=== PATIENT | male | born 1995 | race Caucasian/White ===

== ENCOUNTER 2019-01-21 11:43 | Emergency (ER) | payer SELFPAY ==
[~2019-01-21] VITALS: Ht 175.3 cm; Wt 85.3 kg
[~2019-01-21 11:43] MED LIST: ALBUTEROL; DICY10CA26 PO; FLT05NA16; NAPR-243 PO; NAPR-248; ONDAN4ODT PO; PROAIR
[2019-01-21] MEDS ORDERED: LIDOCAINE 1% INJ 20 ML 20 ML VIAL ONE (11:49)
--- NOTE | 2019-01-21 12:08 | ED Lower Extremity ---
General Chief Complaint: Laceration Stated Complaint: LEG LACERATION Nursing Triage Note: pt presents to ed with complaints of r upper calf lac after jumping over a fence to try to catch his cat which got out of the house. pt denies any other injury. Nursing Sepsis Screen: No Definite Risk Source: patient Exam Limitations: no limitations History of Present Illness Date Seen by Provider: Jan 21, 2019 Time Seen by Provider: 12:04 Initial Comments to ER with laceration to the medial right knee. His cat got out of the house, went into the neighbor's yard. He jumped the fence which was chain linkto go get the cat and cut his leg. His tetanus is up-to-date within the last 5 years. He wrapped this with a bandanna he was wearing and came to the emergency room Onset: just prior to arrival Severity: moderate Pain/Injury Location: right knee Modifying Factors: Worse With Movement Allergies and Home Medications Allergies Coded Allergies: No Known Drug Allergies (Unverified , 02/08/09) Patient Home Medication List Home Medication List Reviewed: Yes Review of Systems Constitutional: see HPI EENTM: see HPI Respiratory: no symptoms reported Cardiovascular: no symptoms reported Genitourinary: no symptoms reported Musculoskeletal: see HPI Skin: no symptoms reported Psychiatric/Neurological: No Symptoms Reported Past Wzbhril-Miusju-Adpute Hx Patient Social History Alcohol Use: Denies Use Recreational Drug Use: No Smoking Status: Never a Smoker Recent Foreign Travel: No Contact w/Someone Who Travel: No Recent Infectious Disease Expo: No Recent Hopitalizations: No Physical Abuse: No Sexual Abuse: No Mistreated: No Fear: No Past Medical History Surgeries: Yes (tonsilectomy & adnoidectomy 2001; skin graft to rt outer العلي/ dog bite ) Respiratory: Yes Cardiac: No Neurological: No Reproductive Disorders: No Genitourinary: No Gastrointestinal: Yes (small twisted intestine found during colonscopy in december 20) Musculoskeletal: Yes (bruised sternum & rib from falling in PE in January 20) Endocrine: No HEENT: No Cancer: No Psychosocial: Yes Integumentary: No Blood Disorders: No Physical Exam Vital Signs Vital Signs - First Documented 01/21/19 11:52 Temp 98.2 Pulse 117 Resp 20 B/P (MAP) 140/89 (106) Pulse Ox 97 Capillary Refill : Less Than 3 Seconds Height, Weight, BMI Height: 5'9.00" Weight: 188lbs. oz. 85.701686xw; BMI Method:Stated General Appearance: WD/WN, no apparent distress HEENT: PERRL/EOMI, normal ENT inspection Respiratory: no respiratory distress, no accessory muscle use Hips: bilateral hip non-tender, bilateral hip normal inspection, bilateral hip normal range of motion Legs: bilateral leg non-tender, bilateral leg normal inspection, bilateral leg normal range of motion Knees: right knee other (there is a 3 cm laceration to the medial of the legat the proximal tibia just inferior to the knee joint. There is exposedfatty tissue.This did not make it down to the muscle fascia.) Ankles: bilateral ankle non-tender, bilateral ankle normal inspection, bilateral ankle normal range of motion Feet: bilateral foot non-tender, bilateral foot normal inspection, bilateral foot normal range of motion Neurologic/Psychiatric: alert, normal mood/affect, oriented x 3 posterior tibial pulses +2 Procedures/Interventions Wound Location: Lower Extremities Wound Length (cm): 3 Wound's Depth, Shape: linear, sub Q Wound Explored: clean Irrigated w/ Saline (ccs): 1500 Anesthesia: 1% Lidocaine Volume Anesthetic (ccs): 5 Staple Repair: Stapler 35W Number of Sutures: 10 Progress area was anesthetized with 5 mill liters of 1% lidocaine without epinephrine.wound was then irrigated with 1500 mL large bottle of saline. wound edges were then pulled together and closed relatively loosely with a total of 10 j carlos. Covered withbacitracin, gauze and Coban. Progress/Results/Core Measures Results/Orders Medications Given in ED Current Medications Medications Dose Ordered Sig/Vinicio Route Start Time Stop Time Status Last Admin Dose Admin Lidocaine HCl 20 ml STK-MED ONCE .ROUTE 01/21/19 11:49 01/21/19 11:51 DC 01/21/19 12:08 20 ML Vital Signs/I&O 01/21/19 11:52 Temp 98.2 Pulse 117 Resp 20 B/P (MAP) 140/89 (106) Pulse Ox 97 Blood Pressure Mean: 106 Departure Impression Primary Impression: Leg laceration Qualified Codes: S81.811A - Laceration without foreign body, right lower leg, initial encounter Disposition: 01 HOME, SELF-CARE Condition: Stable Departure-Patient Inst. Decision time for Depature: 12:08 Referrals: ZANA HART DO (PCP/Family) Primary Care Physician Patient Instructions: Laceration Repair With J Carlos (DC) Add. Discharge Instructions: 1. You may shower allowing water run over this starting tonight.However do not soak it in watersuch as a hot toe swimming pool or bathtub until the j carlos are removed. Return to the emergency room in 10-12 days at a time at your convenience to have the j carlos removed. Return to ER before then for any sign of infection such as redness swelling fevers or chills. Expect a small amount of drainage for the next 2-3 days from this laceration. Change the dressing daily with the materials provided.Take the antibiotics as directed.All discharge instructions reviewed with patient and/or family. Voiced understanding. Scripts Hydrocodone/Acetaminophen (Troy 5-325 Tablet) 1 Each Tablet 1 EACH PO Q6H PRN for PAIN-MODERATE MDD 10, #5 TAB Prov: IRMA LIRA APRN 01/21/19 Cephalexin (Keflex) 500 Mg Capsule 500 MG PO TID, #15 CAP Prov: IRMA LIRA APRN 01/21/19 Work/School Note: Work Release Form Date Seen in the Emergency Department: Jan 21, 2019 Return to Work: Jan 23, 2019 Other Restrictions Listed Below: keep his wound covered with dressing while at work Images Extremities-Lower 1 - Laceration IRMA LIRA APRN Jan 21, 2019 12:08
[2019-01-21] MEDS ORDERED: CEPH-507 PO (12:12)
[2019-01-21] MEDS ORDERED: HYDR-4226 PO (12:12)
[2019-01-21 12:17] VITALS: BP 130/79
== END 2019-01-21 12:17 | disposition home or self-care (01) ==
LOC: EDUNIT# 11:43 → ER 11:45
DX: S81.011A Laceration without foreign body, right knee, initial encounter (principal); Z90.89 Acquired absence of other organs; Z94.5 Skin transplant status; W26.8XXA Contact with other sharp object(s), not elsewhere classified, initial encounter
CPT/HCPCS: 12032

== ENCOUNTER 2019-02-02 15:47 | Emergency (ER) | payer SELFPAY ==
[~2019-02-02] VITALS: Ht 177.8 cm; Wt 81.6 kg
[~2019-02-02 15:47] MED LIST changes: +CEPH-507 PO; +HYDR-4226 PO
[2019-02-02 15:59] VITALS: BP 135/65
== END 2019-02-02 15:59 | disposition home or self-care (01) ==
LOC: EDUNIT# 15:47 → ER 15:48
DX: S81.812D Laceration without foreign body, left lower leg, subsequent encounter (principal); S81.811D Laceration without foreign body, right lower leg, subsequent encounter; X58.XXXD Exposure to other specified factors, subsequent encounter